=== PATIENT | female | born 1985 | race Caucasian/White ===

== ENCOUNTER 2016-10-13 19:18 | Emergency (ER) | payer BC ==
--- NOTE | 2016-11-13 21:14 | ER ---
ADMIT: 10/13/2016 RM/LOC: ER [facility] MR#: [id number] [facility] [address] [place] [id number] WINNIE CUEVAS [address] [place] [address] Emergency Room Report SEX: F AGE: 31 : 1985 DATE: 10/13/2016 ADDENDUM: CHIEF COMPLAINT: Headache. HISTORY OF PRESENT ILLNESS: This is a 31-year-old who has a history of having migraines. The reason she comes in to the ER is because she has had irretractable vomiting for the last 3 days. She says she has not been able to keep anything down. She is just starting to feel weak so came into the ER. COURSE IN THE EMERGENCY ROOM: I checked a urine in a test. Urine is negative for any infection. Actually, no signs of dehydration. test is negative. I am giving her a liter of fluids, Reglan, Benadryl, and Toradol. She already feels significantly better. She will finish the fluids and then go home. CLINICAL IMPRESSION: Migraine headache. GAL Reddy / Flaco Sawyer MD / mindil JOB #: [id number] CC: Moses Mercer MD, Attending Physician Maria Esther Menjivar MD, Family Physician
== END 2016-10-13 21:15 | disposition home or self-care (01) ==
LOC: ER 19:18
DX: G43.909 Migraine, unspecified, not intractable, without status migrainosus (principal); F32.9 Major depressive disorder, single episode, unspecified; F17.210 Nicotine dependence, cigarettes, uncomplicated; Z79.899 Other long term (current) drug therapy

== ENCOUNTER 2016-10-27 06:32 | Day surgery (SDC) | payer BC ==
[~2016-10-27] VITALS: Ht 172.7 cm
--- NOTE | 2016-10-29 08:21 | OR ---
ADMIT: 10/27/2016 RM/LOC: [facility] MR#: [id number] [address] [place] [id number] WINNIE CUEVAS [address] [place] [address] Operative/Delivery Room Report SEX: F AGE: 31 : 1985 SURGERY DATE: 10/27/2016 SURGEON: Matty Logan MD [employer] OPERATOR: None. PREPROCEDURE DIAGNOSES: 1. Cervical spondylosis. 2. Cervicalgia. 3. Chronic daily headache. POSTPROCEDURE DIAGNOSES: 1. Cervical spondylosis. 2. Cervicalgia. 3. Chronic daily headache. PROCEDURE PERFORMED: Right-sided C2-C3 medial branch RFTC (radiofrequency thermocoagulation). INDICATIONS FOR PROCEDURE: The patient is a pleasant female with history of chronic daily headache, comes here for planned right-sided C2-C3 radiofrequency ablation. ANESTHESIA: Local without sedation. ESTIMATED BLOOD LOSS: Zero. COMPLICATIONS: None immediately evident. DESCRIPTION OF PROCEDURE: After the patient was seen in the preoperative area, vitals signs were taken. Prior to the procedure, the risks, benefits, and alternative therapies were discussed at length. Patient consent was obtained and updated. The patient was taken to the fluoroscopy suite and placed on the fluoroscopy table in the prone position. Pressure points were padded to comfort, monitors applied, and a timeout performed. The patient's jaw was turned to the right side. The patient was monitored throughout the procedure. The patient's cervical areas were then prepped and draped in sterile pattern using ChloraPrep. C-arm fluoroscopy was then brought in to identify C3. A 20-gauge RFTC spinal needle was then advanced and made ADMIT: 10/27/2016 RM/LOC: [facility] MR#: [id number] [address] [place] [address] [place], [place] [phone] WINNIE CUEVAS [address] [place] [address] Operative/Delivery Room Report SEX: F AGE: 31 : 1985 contact with the C2-C3 and C3 waist. Sensory testing and motor testing were then done. We then proceeded with radiofrequency ablation, which consisted of 80 degrees for 90 seconds. We did an RFTC, right C3, at 3 levels; 1st level at the C3 waist, 2nd at the C2-C3 joint, and 3rd just above the C2-C3 joint line side. The patient tolerated the procedure well and had no immediate complications. The patient was taken to the PACU where she recovered nicely and was sent home in a stable condition. PLAN: Discharge instructions were given, followup scheduled. 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 Matty Logan MD/ mariama JOB #: [id number] CC: Matty Logan, Attending Physician Maria Esther Menjivar, Family Physician
== END 2016-10-27 08:40 | disposition home or self-care (01) ==
LOC: SSS 06:32
PROC: BR14ZZZ Fluoroscopy of Cervical Facet Joint(s) (ICD-10-PCS; principal; 2016-10-27)
PROC: 3E0T3TZ Introduction of Destructive Agent into Peripheral Nerves and Plexi, Percutaneous Approach (ICD-10-PCS; principal; 2016-10-27)
DX: G89.29 Other chronic pain (principal); M47.812 Spondylosis without myelopathy or radiculopathy, cervical region; R51 Headache; F41.9 Anxiety disorder, unspecified; F32.9 Major depressive disorder, single episode, unspecified; Z90.49 Acquired absence of other specified parts of digestive tract

== ENCOUNTER 2016-12-08 08:21 | Day surgery (SDC) | payer BC ==
[~2016-12-08] VITALS: Ht 172.7 cm
--- NOTE | 2016-12-09 08:16 | OR ---
ADMIT: 12/08/2016 RM/LOC: [facility] MR#: [id number] [address] [phone] WINNIE CUEVAS [address] [place] [address] Operative/Delivery Room Report SEX: F AGE: 31 : 1985 SURGERY DATE: 12/08/2016 SURGEON: Matty Logan MD CHIEF INVESTIGATOR: None. PREPROCEDURE DIAGNOSES: 1. Cervical spondylosis. 2. Cervicalgia. 3. Chronic daily headaches. POSTPROCEDURE DIAGNOSES: Same as above PROCEDURE PERFORMED: Left C2-C3 radiofrequency ablation. INDICATIONS FOR PROCEDURE: The patient is a pleasant female with headaches secondary to above-mentioned diagnoses, comes here for planned left-sided C2 and C3 radiofrequency ablation. ANESTHESIA: Local without sedation. ESTIMATED BLOOD LOSS: Zero. COMPLICATIONS: None immediately evident. DESCRIPTION OF PROCEDURE: After the patient was seen in the preoperative area, vitals signs were taken. Prior to the procedure, the risks, benefits, and alternative therapies were discussed at length. Patient consent was obtained and updated. The patient was taken to the fluoroscopy suite and placed on the fluoroscopy table in the prone position. Pressure points were padded to comfort, monitors applied, and a timeout performed. The patient's jaw was turned to the right side. The patient was monitored throughout the procedure. The patient's cervical areas were then prepped and draped in sterile pattern using ChloraPrep. C-arm fluoroscopy was then brought in to identify C2-C3 junction and C3 waist on the left side. A 20-gauge RFTC ADMIT: 12/08/2016 RM/LOC: [facility] MR#: [id number] [address] [address] WINNIE CUEVAS [address] [facility] [place] [address] Operative/Delivery Room Report SEX: F AGE: 31 : 1985 spinal needle was then advanced and made contact with the C2-C3 junction and C3 waist on the left side. Sensory testing and motor testing were then done. We then proceeded with radiofrequency ablation, which consisted of 80 degrees for 90 seconds. We did an RFTC, left C3, at 3 levels; 1st level at the C3 waist, 2nd at the C2-C3 joint, and 3rd just above the C2-C3 joint line side. The patient tolerated the procedure well and had no immediate complications. The patient was taken to the PACU where she recovered nicely and was sent home in a stable condition. PLAN: Discharge instructions were given, followup scheduled. 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 Matty Logan MD/ mariama JOB #: [id number] CC: Matty Logan, Attending Physician Maria Esther Menjivar, Family Physician
== END 2016-12-08 10:00 | disposition home or self-care (01) ==
LOC: SSS 08:21
PROC: 3E0T3TZ Introduction of Destructive Agent into Peripheral Nerves and Plexi, Percutaneous Approach (ICD-10-PCS; principal; 2016-12-08)
PROC: BR14YZZ Fluoroscopy of Cervical Facet Joint(s) using Other Contrast (ICD-10-PCS; principal; 2016-12-08)
DX: M47.812 Spondylosis without myelopathy or radiculopathy, cervical region (principal); M79.1 Myalgia; G43.719 Chronic migraine without aura, intractable, without status migrainosus; F17.200 Nicotine dependence, unspecified, uncomplicated; Z79.899 Other long term (current) drug therapy; Z90.49 Acquired absence of other specified parts of digestive tract